=== PATIENT | female | born 1960 | race Caucasian/White ===

== ENCOUNTER 2024-01-13 06:30 | Day surgery (SDC) | payer MEDICAID, OTHER ==
[~2024-01-13] VITALS: Ht 172.7 cm; Wt 84.8 kg
[2024-01-13] MEDS ORDERED: fentaNYL CITRATE/PF 100 MCG/2 ML AMP ONE (07:23)
[2024-01-13] MEDS ORDERED: SIMETHICONE 40 MG/0.6 ML ML ONE (07:23)
[2024-01-13] MEDS ORDERED: MIDAZOLAM HCL 5 MG/5 ML VIAL ONE (07:24)
[2024-01-13 15:36] VITALS: BP_SYST 151; PULSE 70; RESP 18; TEMP 97.4; O2SAT 98
== END 2024-01-13 09:48 | disposition home or self-care (01) ==
LOC: SDS 06:30 → SMU 06:34 → SDS 09:48
PROVIDERS: ATTEND Internal Medicine
DX: Z12.11 Encounter for screening for malignant neoplasm of colon (principal); K29.50 Unspecified chronic gastritis without bleeding; D12.4 Benign neoplasm of descending colon; K21.9 Gastro-esophageal reflux disease without esophagitis; K57.30 Diverticulosis of large intestine without perforation or abscess without bleeding; K44.9 Diaphragmatic hernia without obstruction or gangrene; I10 Essential (primary) hypertension; E11.9 Type 2 diabetes mellitus without complications; E78.5 Hyperlipidemia, unspecified; Z79.84 Long term (current) use of oral hypoglycemic drugs; Z79.899 Other long term (current) drug therapy; Z86.010 Personal history of colon polyps
CPT/HCPCS: 45385; 43239; 99152; 87081; 36415; 82948; 88305; 88312; 88313; G0378; J2250; J3010